=== PATIENT | male | born 1995 | race American Indian/Alaskan Native ===

== ENCOUNTER 2017-10-05 11:51 | Emergency (ER) | payer OTHER ==
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
[2017-10-05] MEDS ORDERED: MOTRIN PO ONE (13:17)
[2017-10-05 14:04] VITALS: BP 124/90
== END 2017-10-05 14:03 | disposition home or self-care (01) ==
LOC: ED 11:51
DX: S13.4XXA Sprain of ligaments of cervical spine, initial encounter (principal); S39.012A Strain of muscle, fascia and tendon of lower back, initial encounter; J45.909 Unspecified asthma, uncomplicated; F17.200 Nicotine dependence, unspecified, uncomplicated; V49.49XA Driver injured in collision with other motor vehicles in traffic accident, initial encounter; Y93.89 Activity, other specified; Y92.89 Other specified places as the place of occurrence of the external cause; Y99.8 Other external cause status
CPT/HCPCS: 99282